=== PATIENT | female | born 1975 | race Caucasian/White ===

== ENCOUNTER 2020-02-21 10:25 | Emergency (ER) | payer OTHER ==
[~2020-02-21] VITALS: Ht 165.1 cm; Wt 81.8 kg
[~2020-02-21 10:25] MED LIST: LEVO100T4 PO
[2020-02-21 10:28] VITALS: BP 133/94
[2020-02-21] MEDS ORDERED: IBUP-2759 PO (10:31)
== END 2020-02-21 13:26 | disposition home or self-care (01) ==
LOC: EMS 10:28
DX: S63.617A Unspecified sprain of left little finger, initial encounter (principal); R03.0 Elevated blood-pressure reading, without diagnosis of hypertension; E03.9 Hypothyroidism, unspecified; Z79.899 Other long term (current) drug therapy; X50.9XXA Other and unspecified overexertion or strenuous movements or postures, initial encounter; Y93.89 Activity, other specified; Y92.89 Other specified places as the place of occurrence of the external cause; Y99.8 Other external cause status